=== PATIENT | male | born 1955 | race Caucasian/White ===

== ENCOUNTER 2021-02-06 08:50 | Day surgery (SDC) | payer MEDICARE ==
[2021-02-06 09:49] LABS: INR 1.06 (0.85-1.15); PROTHROMBIN TIME 11.5 SEC (9.6-11.6)
[2021-02-06 12:30] VITALS: BP 131/74
[2021-02-06 12:45] VITALS: BP 146/68
[2021-02-06 13:00] VITALS: BP 138/86
[2021-02-06 13:15] VITALS: BP 139/75
[2021-02-06 13:38] LABS: APPEARANCE BODY FLUID SLIGHTLY CLOUDY (CLEAR); COLOR,BODY FLUID AMBER (LT YELLOW); SPECIMENTYPE,BODY FLUID PLEURAL; TOTAL VOLUME,BODY FLUID 1200 mL
[2021-02-06 13:51] LABS: BODY FLUID RBC 3850 /cu. mm.; BODY FLUID WBC 483 /cu. mm.
[2021-02-06 14:17] LABS: BF LYMPHOCYTE 98 %
== END 2021-02-06 13:30 | disposition home or self-care (01) ==
LOC: DAH 08:50
PROVIDERS: ATTEND Internal Medicine
DX: J90 Pleural effusion, not elsewhere classified (principal); I25.10 Atherosclerotic heart disease of native coronary artery without angina pectoris; I11.0 Hypertensive heart disease with heart failure; I50.9 Heart failure, unspecified; E66.9 Obesity, unspecified; J44.1 Chronic obstructive pulmonary disease with (acute) exacerbation; G47.33 Obstructive sleep apnea (adult) (pediatric); Z87.891 Personal history of nicotine dependence; Z72.89 Other problems related to lifestyle; Z83.3 Family history of diabetes mellitus; Z82.49 Family history of ischemic heart disease and other diseases of the circulatory system; Z79.4 Long term (current) use of insulin; Z79.899 Other long term (current) drug therapy; Z68.31 Body mass index [BMI] 31.0-31.9, adult
CPT/HCPCS: 32555; 36415; 71045; 76604; 82945; 82948; 83615 ×2; 83986; 84155; 84157; 85610; 85730; 87071; 87205; 89051; A4606; A4615; A4663; A6206; A6258; A6402; C1729; 32557

== ENCOUNTER 2021-02-27 09:50 | Day surgery (SDC) | payer MEDICARE ==
[2021-02-27 10:42] LABS: TOTAL PROTEIN, SERUM 7.9 g/dL (6.0-8.3)
[2021-02-27 10:44] LABS: INR 1.22 (0.85-1.15); PROTHROMBIN TIME 13.1 SEC (9.6-11.6)
[2021-02-27 10:45] LABS: PARTIAL THROMBOPLASTIN TIME 34.6 SEC (26.3-35.5)
[2021-03-09] MEDS ORDERED: FURO20TA4 PO (11:23)
[2021-03-09] MEDS ORDERED: CEPH500C2 PO (11:23)
[2021-03-09] MEDS ORDERED: LEVO500T89 PO (11:23)
[2021-03-09] MEDS ORDERED: INSU200I4 SQ (11:23)
[2021-03-09] MEDS ORDERED: METF-446 PO (11:23)
[2021-03-09] MEDS ORDERED: FLUT1BLS3 PO (11:23)
[2021-03-09] MEDS ORDERED: CLOP75TA32 PO (11:23)
[2021-03-09] MEDS ORDERED: METO-391 PO (11:23)
== END 2021-02-27 13:30 | disposition home or self-care (01) ==
LOC: DAH 09:50
PROVIDERS: ATTEND Internal Medicine
DX: J90 Pleural effusion, not elsewhere classified (principal); J94.8 Other specified pleural conditions; I11.0 Hypertensive heart disease with heart failure; I50.9 Heart failure, unspecified; J44.1 Chronic obstructive pulmonary disease with (acute) exacerbation; I25.10 Atherosclerotic heart disease of native coronary artery without angina pectoris; Z87.442 Personal history of urinary calculi; Z88.0 Allergy status to penicillin; G47.33 Obstructive sleep apnea (adult) (pediatric); Z87.891 Personal history of nicotine dependence; Z53.8 Procedure and treatment not carried out for other reasons
CPT/HCPCS: 36415; 71045; 76705; 82948; 83615; 84155; 85610; 85730; A4615; A4663

== ENCOUNTER 2021-03-27 10:05 | Emergency (ER) | payer MEDICARE ==
[~2021-03-27] VITALS: Ht 190.5 cm; Wt 111.6 kg
[~2021-03-27 10:05] MED LIST: CEPH500C2 PO; CLOP75TA32 PO; FLUT1BLS3 PO; FURO20TA4 PO; INSU200I4 SQ; LEVO500T89 PO; METF-446 PO; METO-391 PO
[2021-03-27 10:22] VITALS: BP 100/43
[2021-03-27 10:44] LABS: BASOPHILS % (AUTO) 0.5 % (0.0-5.0); EOSINOPHILS % (AUTO) 1.8 % (0.0-8.0); LYMPHOCYTES % (AUTO) 5.1 % (21.0-51.0); MEAN CORPUSCULAR HEMOGLOBIN 25.8 pg (27.0-33.0); MEAN CORPUSCULAR HGB CONC 29.1 g/dL (32.0-36.0); MEAN CORPUSCULAR VOLUME 88.7 fL (79-99); NEUTROPHILS % (AUTO) 82.1 % (40.0-77.0); PLATELET COUNT (AUTO) 107 K/uL (130-400); RED BLOOD CELL COUNT(AUTO) 3.72 MIL/uL (4.50-6.20); RED CELL DISTRIBUTION WIDTH 23.1 % (11.0-15.5); WHITE BLOOD COUNT (AUTO) 11.5 K/uL (4.8-10.8)
[2021-03-27 10:54] LABS: INR 1.16 (0.85-1.15); PROTHROMBIN TIME 12.5 SEC (9.6-11.6)
[2021-03-27 11:04] LABS: ALANINE AMINOTRANSFERASE 23 U/L (12-78); ALBUMIN 2.3 g/dL (3.5-5.0); ASPARTATE AMINOTRANSFERASE 25 U/L (10-37); BILIRUBIN,TOTAL 0.5 mg/dL (0.2-1.0); CARBON DIOXIDE 31 mmol/L (21-32); CHLORIDE 102 mmol/L (101-111); CREATINE KINASE, TOTAL 18 U/L (21-232); CREATININE 1.4 mg/dL (0.5-1.5); GLOMERULAR FILTR. RATE CALC 54 mL/min (>60); GLUCOSE,RANDOM 166 mg/dL (70-105); MYOGLOBIN 38 ng/mL (10-92); POTASSIUM 4.4 mmol/L (3.5-5.1); SODIUM SERUM 139 mmol/L (136-145); TOTAL PROTEIN, SERUM 6.5 g/dL (6.0-8.3); TROPONIN I < 0.04 ng/mL (0.00-0.06); UREA NITROGEN, BLOOD 23 mg/dL (7-18)
[2021-03-27 11:10] LABS: B-TYPE NATRIURETIC PEPTIDE 257 pg/mL (0-100)
[2021-03-27 13:11] VITALS: BP 108/58
[2021-03-27 16:38] VITALS: BP 108/58
== END 2021-03-27 19:33 | disposition home or self-care (01) ==
LOC: EDH 10:05
DX: R41.82 Altered mental status, unspecified (principal); R94.31 Abnormal electrocardiogram [ECG] [EKG]; D64.9 Anemia, unspecified; L03.115 Cellulitis of right lower limb; L03.116 Cellulitis of left lower limb; E11.51 Type 2 diabetes mellitus with diabetic peripheral angiopathy without gangrene; J44.9 Chronic obstructive pulmonary disease, unspecified; E78.00 Pure hypercholesterolemia, unspecified; I10 Essential (primary) hypertension; Z79.4 Long term (current) use of insulin; Z88.0 Allergy status to penicillin; Z79.899 Other long term (current) drug therapy
CPT/HCPCS: 36415; 71045; 80053; 82550; 83874; 83880; 84484; 85025; 85610; 85730; 93005